=== PATIENT | male | born 1960 | race Hispanic/Latino ===

== ENCOUNTER 2018-06-12 09:54 | Observation (INO) | payer SELFPAY ==
[~2018-06-12] VITALS: Ht 177.8 cm; Wt 72.0 kg
[2018-06-12 10:24] LABS: HEMATOCRIT 46.3 % (39.0-50.0); HEMOGLOBIN 15.6 g/dl (14.0-18.0); IMMATURE GRANULOCYTES 0.2 % (0.0-5.0); MEAN CELL VOLUME 85.6 fL CALC (80.0-100.0); MEAN CORPUSCULAR HGB 28.8 pG CALC (26.0-32.0); MEAN CORPUSCULAR HGB CONC 33.7 g/L CALC (32.0-36.0); NEUT# 4.7 thou/uL (1.82-7.42); RED BLOOD COUNT 5.41 mill/uL (4.70-6.10); RED CELL DISTRI WIDTH 12.8 % (11.5-15.5)
[2018-06-12 10:36] LABS: ANION GAP 16 (6-22 (CALC)); BUN 15 mg/dL (9-20); BUN/CREATININE RATIO 17 (12-20 (CALC)); CARBON DIOXIDE 25 mmol/l (22-30); CHLORIDE 105 mmol/l (95-108); CREATININE 0.9 mg/dL (0.7-1.3); GFR > 60 ML/MIN (>=60 (CALC)); GFR FOR AFR.AMER. > 60 ML/MIN (>=60 (CALC)); POTASSIUM 4.4 mmol/l (3.5-5.1); SODIUM 141 mmol/l (137-146)
[2018-06-12 12:41] VITALS: BP 131/70
[2018-06-12 16:05] VITALS: BP 116/64
[2018-06-12 19:14] VITALS: BP 123/64
[2018-06-13 00:04] VITALS: BP 104/53
[2018-06-13 04:28] VITALS: BP 122/60
[2018-06-13 06:24] LABS: CHOLESTEROL HDL RATIO 5.6 (<4.4 (CALC)); MAGNESIUM 1.9 mg/dL (1.6-2.3)
[2018-06-13 07:39] VITALS: BP 109/54
[2018-06-13 08:52] VITALS: BP 109/54
[2018-06-13] MEDS ORDERED: LIPITOR10 M1 PO (08:54)
[2018-06-13] MEDS ORDERED: METFORMIN500 MG PO (08:54)
[2018-06-13] MEDS ORDERED: LISINOPRIL10 MG PO (08:54)
[2018-06-13] MEDS ORDERED: ASPIRIN ADULT L81 M2 PO (09:50)
== END 2018-06-13 10:52 | disposition home or self-care (01) | DRG 313 ==
LOC: ED 09:54 → ED-I 11:00 → ED 11:09 → MS2 11:18
PROVIDERS: Family Medicine; ADMIT Internal Medicine; ATTEND Internal Medicine
DX: R07.2 Precordial pain (principal); E11.9 Type 2 diabetes mellitus without complications; I10 Essential (primary) hypertension; E78.5 Hyperlipidemia, unspecified; Z91.14 Patient's other noncompliance with medication regimen; Z79.84 Long term (current) use of oral hypoglycemic drugs
CPT/HCPCS: G0378